=== PATIENT | female | born 1955 | race Caucasian/White ===

== ENCOUNTER → 2020-07-13 13:49 | Outpatient (CLI) | payer MEDICARE, SELFPAY ==
--- NOTE | 2020-07-13 | DI.MRI.S_ITS ---
PROCEDURE: MR SHOULDER RT WO CON INDICATIONS: Strain of unspecified muscle, fascia and tendon. RIGHT SHOULDER PAIN TECHNIQUE: Noncontrast oblique coronal T2 fast spin echo with fat saturation, oblique sagittal T1 spin echo and T2 fast spin echo with fat saturation, axial T1 spin echo and T2 fast spin echo with fat saturation through the shoulder. COMPARISON: None. FINDINGS: Image quality: Excellent. Rotator cuff: There is moderate T2 signal elevation throughout the supraspinatus and infraspinatus tendons at the humeral insertion sites, indicating tendinopathy, extending to the musculotendinous junction. There is superimposed low-grade partial-thickness intrasubstance tearing of the anterior supraspinatus tendon at the humeral insertion site extending to the musculotendinous junction. Superimposed bursal surface tears of the posterior supraspinatus tendon at the musculotendinous junction. Superimposed low-grade partial-thickness intrasubstance tearing of the anterior infraspinatus tendon at the humeral insertion site extending to the musculotendinous junction. Teres minor is intact. Low-grade and moderate grade partial-thickness intrasubstance tears of the mid subscapularis tendon at the humeral insertion site extending to the musculotendinous junction. Bones and bursae: No bone marrow contusions or fractures. Ill-defined high T2 signal intensity within the humeral head anterosuperiorly. Moderate acromioclavicular joint degeneration. The acromion demonstrates conventional anatomy, without an os acromiale. A large amount of subacromial-subdeltoid or subcoracoid bursal fluid is present. Capsule and soft tissues: Moderate glenohumeral joint effusion. In the absence of intra-articular contrast, the labrum and glenohumeral ligaments appear intact. Biceps anchor is not well seen but the biceps is otherwise grossly intact. The rotator interval appears normal, without fibrosis. The coracohumeral ligament is normal in thickness. IMPRESSION: 1. Supraspinatus and infraspinatus tendinopathy with superimposed partial thickness tears. 2. Partial-thickness tears of the subscapularis tendon. 3. No full-thickness rotator cuff tear. 4. Acromioclavicular joint osteoarthritis. 5. Glenohumeral joint effusion. 6. Subacromial bursitis. Dictated by: Shana Silva M.D. on 07/13/2020 at 15:57 Approved by: Shana Silva M.D. on 07/13/2020 at 16:00
== END ==
PROVIDERS: Referring Provider Orthopaedic Surgery Adult Reconstructive Orthopaedic Surgery; Visit Provider Orthopaedic Surgery Adult Reconstructive Orthopaedic Surgery
DX: S46.011A Strain of muscle(s) and tendon(s) of the rotator cuff of right shoulder, initial encounter (principal); M25.511 Pain in right shoulder; M19.011 Primary osteoarthritis, right shoulder; M75.51 Bursitis of right shoulder; M25.411 Effusion, right shoulder; X58.XXXA Exposure to other specified factors, initial encounter
CPT/HCPCS: 73221

== ENCOUNTER → 2021-09-17 11:31 | Outpatient (CLI) | payer MEDICARE, SELFPAY ==
--- NOTE | 2021-09-17 | DI.MG.S_ITS ---
BILATERAL DIGITAL SCREENING MAMMOGRAM 3D/2D WITH CAD: 09/17/2021 CLINICAL: Routine screening. Personal history of left breast cancer. Comparison is made to exams dated: 01/07/2020 breast MRI, 12/16/2019 ultrasound biopsy, 12/16/2019 mammogram, 12/09/2019 mammogram, and 08/21/2014 mammogram - [facility]. The tissue of both breasts is extremely dense, which lowers the sensitivity of mammography. Current study was also evaluated with a Computer Aided Detection (CAD) system. There are benign post operative findings in the right breast. No significant masses, calcifications, or other findings are seen in either breast. There has been no significant interval change. IMPRESSION: BENIGN There is no mammographic evidence of malignancy. A 1 year screening mammogram is recommended. This exam was interpreted at Station ID: [id number]. NOTE: For mammograms, a report in lay terms will be sent to the patient. Approximately 15% of breast malignancies will not be visualized mammographically. In the management of a palpable breast mass, a negative mammogram must not discourage biopsy of a clinically suspicious lesion. Electronically Signed By: Ana Cristina garza/lucia:09/17/2021 12:45:23 letter sent: Normal Exam ACR BI-RADS Category 2: Benign Finding(s) 3342F
== END ==
PROVIDERS: Referring Provider Surgery; Visit Provider Surgery
DX: Z12.31 Encounter for screening mammogram for malignant neoplasm of breast (principal); Z85.3 Personal history of malignant neoplasm of breast
CPT/HCPCS: 77063; 77067

== ENCOUNTER → 2022-10-13 13:16 | Outpatient (CLI) | payer MEDICARE, SELFPAY ==
--- NOTE | 2022-10-13 | DI.MG.S_ITS ---
BILATERAL DIGITAL SCREENING MAMMOGRAM 3D/2D WITH CAD: 10/13/2022 CLINICAL: Routine screening. Personal history of left breast cancer. Comparison is made to exams dated: 09/17/2021 mammogram - [facility], 01/07/2020 breast MRI, 12/16/2019 ultrasound biopsy, 12/16/2019 mammogram, 12/09/2019 ultrasound, and 12/09/2019 mammogram - [facility]. Both breasts are extremely dense, which lowers the sensitivity of mammography (category d />75% glandular tissue). Current study was also evaluated with a Computer Aided Detection (CAD) system. There is an asymmetry in the right breast posterior depth central to the nipple seen on the craniocaudal view only, more prominent than prior. No other significant masses, calcifications, or other findings are seen in either breast. Post surgical changes on the left. IMPRESSION: INCOMPLETE: NEEDS ADDITIONAL IMAGING EVALUATION The asymmetry in the right breast is indeterminate. Additional views with possible ultrasound are recommended. This exam was interpreted at Station ID: [id number]. NOTE: For mammograms, a report in lay terms will be sent to the patient. Approximately 15% of breast malignancies will not be visualized mammographically. In the management of a palpable breast mass, a negative mammogram must not discourage biopsy of a clinically suspicious lesion. Electronically Signed By: Korey Darden M.D. lc/:10/13/2022 14:08:50 letter sent: Additional Imaging Needed ACR BI-RADS Category 0: Incomplete 3340F
== END ==
PROVIDERS: PCP Internal Medicine; Referring Provider Surgery; Visit Provider Surgery
DX: Z12.31 Encounter for screening mammogram for malignant neoplasm of breast (principal); R92.8 Other abnormal and inconclusive findings on diagnostic imaging of breast
CPT/HCPCS: 77063; 77067

== ENCOUNTER → 2022-10-28 13:34 | Outpatient (CLI) | payer MEDICARE, SELFPAY ==
--- NOTE | 2022-10-28 | DI.MG.S_ITS ---
UNILATERAL RIGHT DIGITAL DIAGNOSTIC MAMMOGRAM 3D/2D WITH ADDITIONAL VIEWS: 10/28/2022 CLINICAL: Additional evaluation requested from prior study. Comparison is made to exams dated: 10/13/2022 mammogram, 09/17/2021 mammogram - [facility], 01/07/2020 breast MRI, 12/16/2019 ultrasound biopsy, and 12/16/2019 mammogram - [facility]. The right breast is extremely dense, which lowers the sensitivity of mammography (category d />75% glandular tissue). There is a benign asymmetry in the right breast posterior depth central to the nipple seen on the craniocaudal view only. This is not seen in additional views. No other significant masses or calcifications are seen in the breast. IMPRESSION: NEGATIVE There is no mammographic evidence of malignancy. A 1 year screening mammogram is recommended. Exam findings were conveyed to the patient. This exam was interpreted at Station ID: [id number]. NOTE: For mammograms, a report in lay terms will be sent to the patient. Approximately 15% of breast malignancies will not be visualized mammographically. In the management of a palpable breast mass, a negative mammogram must not discourage biopsy of a clinically suspicious lesion. Electronically Signed By: Isaak Sanchez M.D. slc/:10/28/2022 13:55:19 letter sent: Normal Exam ACR BI-RADS Category 1: Negative 3341F
== END ==
PROVIDERS: PCP Internal Medicine; Referring Provider Surgery; Visit Provider Surgery
DX: R92.8 Other abnormal and inconclusive findings on diagnostic imaging of breast (principal)
CPT/HCPCS: 77065; G0279

== ENCOUNTER → 2023-10-17 11:45 | Outpatient (CLI) | payer MEDICARE, SELFPAY ==
--- NOTE | 2023-10-17 11:47 | DI.MG.S_ITS ---
BILATERAL DIGITAL SCREENING MAMMOGRAM 3D/2D WITH CAD POST LUMPECTOMY: 10/17/2023 CLINICAL: Routine screening. Personal history of left breast cancer. Comparison is made to exams dated: 10/13/2022 mammogram, 09/17/2021 mammogram - [facility], 01/07/2020 breast MRI, and 12/09/2019 mammogram - [facility]. Both breasts are extremely dense, which lowers the sensitivity of mammography (category d />75% glandular tissue). Current study was also evaluated with a Computer Aided Detection (CAD) system. There are benign post operative findings in the left breast. No significant masses, calcifications, or other findings are seen in either breast. There has been no significant interval change. IMPRESSION: BENIGN There is no mammographic evidence of malignancy. A 1 year screening mammogram is recommended. This exam was interpreted at Station ID: [id number]. NOTE: For mammograms, a report in lay terms will be sent to the patient. Approximately 15% of breast malignancies will not be visualized mammographically. In the management of a palpable breast mass, a negative mammogram must not discourage biopsy of a clinically suspicious lesion. Electronically Signed By: Lina deras/lucia:10/17/2023 16:15:55 letter sent: Normal Exam ACR BI-RADS Category 2: Benign Finding(s) 3342F
== END ==
PROVIDERS: PCP Internal Medicine; Referring Provider Internal Medicine; Visit Provider Internal Medicine
DX: Z12.31 Encounter for screening mammogram for malignant neoplasm of breast (principal); Z85.3 Personal history of malignant neoplasm of breast; R92.343 Mammographic extreme density, bilateral breasts
CPT/HCPCS: 77063; 77067